=== PATIENT | female | born 1980 | race Hispanic/Latino ===

== ENCOUNTER 2019-04-17 09:43 | Emergency (ER) | payer SELFPAY ==
[2019-04-17 10:56] LABS: #Basophils 0.1 thou/uL (0.0-0.2); #Eosinphils 0.1 thou/uL (0.0-0.7); #Lymphocytes 1.1 thou/uL (1.20-3.40); #Monocytes 0.5 thou/uL (0.11-0.59); #Neutrophils 4.9 thou/uL (1.40-6.50); %Basophils 0.8 % (0.0-1.0); %Lymphocytes 16.3 % (21.0-51.0); %Monocytes 7.9 % (0.0-10.0); %Neutrophils 73.1 % (42.0-75.0); Hemoglobin 6.8 g/dL (12.0-16.0); Mean Corpuscular HGB CONC 32.6 g/dL (32.0-36.0); Mean Corpuscular Hemoglobin 24.1 pg (27.0-31.0); Mean Corpuscular Volume 73.9 fL (78.0-98.0); Mean Platelet Volume 8.7 fL (7.4-10.4); Platelet Count 290 thou/uL (130-400); RBC Distribution Width 16.7 % (11.5-14.5); Red Blood Cell (RBC) Count 2.82 mill/uL (4.20-5.40); White Blood Cell (WBC) Count 6.7 thou/uL (4.8-10.8)
[2019-04-17 11:18] LABS: ALT (SGPT) 82 U/L (8-55); AST (SGOT) 58 U/L (5-34); Albumin 4.3 g/dL (3.5-5.0); Alkaline Phosphatase 112 U/L (40-150); Anion Gap 11 mmol/L (10-20); BUN (Urea Nitrogen) 8 mg/dL (7.0-18.7); Bilirubin, Total 0.5 mg/dL (0.2-1.2); Calc. Creatinine Clearance 0 mL/min (70-130); Calcium 9.1 mg/dL (7.8-10.44); Carbon Dioxide 27 mmol/L (22-29); Chloride 103 mmol/L (98-107); Estimated GFR-MDRD Greater than 90; Globulin 2.9 g/dL (2.4-3.5); Glucose 115 mg/dL (70-105); Potassium 3.9 mmol/L (3.5-5.1); Protein, Total 7.2 g/dL (6.0-8.3); Sodium 137 mmol/L (136-145)
[2019-04-17 11:33] LABS: BHCG - Serum Negative (NEGATIVE); Pregs Control Background? CLEAR/WHITE (CLR/WHITE); Pregs Control Bar Appear? YES (CONTROL BAR)
[2019-04-17 11:34] LABS: Hypochromia SLIGHT = 6-15 cells (100X) (0-5/hpf); MDiff Complete? YES; Microcytosis MODERATE=15-30 cells (100X) (0-5/hpf); Platelet Morphology Comment Appears Adequate; Polychromasia MODERATE = 3-4 cells (100X) (0-2/hpf)
[2019-04-17 11:52] LABS: Iron 19 ug/dL (50-170); Iron Binding Capacity, Total 466 mcg/dL (265-497)
[2019-04-17 12:03] LABS: Ferritin 11.08 ng/mL (10-291)
--- NOTE | 2019-04-17 12:51 | ULT ---
Pelvic sonogram transabdominal and transvaginal imaging with duplex evaluation HISTORY: Pelvic pain and bleeding. FINDINGS: Urinary bladder is unremarkable. The uterus is very heterogeneous and measures up to 15.1 c m. Endometrium is 1.0 cm. No free fluid is apparent. Right ovary is 4.1 cm width good color and spectral Doppler flow. Left ovary not well visualized with transabdominal or transvaginal imaging. IMPRESSION: Enlarged uterus at 15.1 cm. No other significant abnormalities are demonstrated.
== END 2019-04-17 18:58 | disposition home or self-care (01) ==
LOC: ERS 09:43
DX: D64.9 Anemia, unspecified (principal)
CPT/HCPCS: 36415; 36430; 76856; 80053; 82728; 83540; 83550; 84703; 85025; 86850; 86900; 86901; 99283; P9016

== ENCOUNTER 2019-06-14 05:42 | Emergency (ER) | payer OTHER ==
[2019-06-14] MEDS ORDERED: Ketorolac Tromethamine 30 MG/ML VIAL ONE (06:05)
[2019-06-14] MEDS ORDERED: Ondansetron PF 4 MG/2 ML Vial ONE (06:12)
[2019-06-14 06:42] LABS: #Eosinphils 0.2 thou/uL (0.0-0.7); #Lymphocytes 1.5 thou/uL (1.20-3.40); #Monocytes 0.5 thou/uL (0.11-0.59); %Basophils 0.1 % (0.0-1.0); %Eosinophils 2.8 % (0.0-10.0); %Lymphocytes 24.2 % (21.0-51.0); %Monocytes 7.3 % (0.0-10.0); %Neutrophils 65.6 % (42.0-75.0); Hemoglobin 12.6 g/dL (12.0-16.0); Mean Corpuscular Volume 87.4 fL (78.0-98.0); Mean Platelet Volume 8.4 fL (7.4-10.4); Platelet Count 252 thou/uL (130-400); RBC Distribution Width 15.2 % (11.5-14.5); Red Blood Cell (RBC) Count 4.51 mill/uL (4.20-5.40); White Blood Cell (WBC) Count 6.2 thou/uL (4.8-10.8)
[2019-06-14 06:43] LABS: Bilirubin Negative (Negative); Blood, Urine Negative (Negative); Clarity Clear (Clear); Glucose, Urine (Dipstick) Normal (Negative); Leukocyte Negative Leu/uL (Negative); Nitrite Negative (Negative); Protein, Urine (Dipstick) Negative (Neg-Trace); Urobilinogen Normal mg/dL (Less than 2)
[2019-06-14 06:47] LABS: BHCG - Serum Negative (NEGATIVE); Pregs Control Background? CLEAR/WHITE (CLR/WHITE); Pregs Control Bar Appear? YES (CONTROL BAR)
[2019-06-14] MEDS ORDERED: Promethazine HCl 25 MG/ML VIAL ONE (06:48)
[2019-06-14 06:54] LABS: ALT (SGPT) 186 U/L (8-55); AST (SGOT) 91 U/L (5-34); Albumin 4.3 g/dL (3.5-5.0); Alkaline Phosphatase 114 U/L (40-150); Anion Gap 13 mmol/L (10-20); BUN (Urea Nitrogen) 13 mg/dL (7.0-18.7); Bilirubin, Total 0.3 mg/dL (0.2-1.2); Calc. Creatinine Clearance 0 mL/min (70-130); Calcium 9.1 mg/dL (7.8-10.44); Carbon Dioxide 24 mmol/L (22-29); Chloride 103 mmol/L (98-107); Estimated GFR-MDRD Greater than 90; Glucose 133 mg/dL (70-105); Potassium 3.7 mmol/L (3.5-5.1); Protein, Total 7.3 g/dL (6.0-8.3); Sodium 136 mmol/L (136-145)
[2019-06-14] MEDS ORDERED: Morphine 4 MG/ML VIAL ONE ×2 (07:04→08:39)
--- NOTE | 2019-06-14 08:13 | CT ---
EXAM: Abdomen and pelvic CT scan with contrast: HISTORY: Pain COMPARISON: Reference is made to recent pelvic ultrasound 04/17/2019 FINDINGS: The visualized lung bases are clear. Liver: Hepatic steatosis Gallbladder: Prior cholecystectomy Pancreas: Unremarkable Spleen: Prominent volume without focal lesion Adrenal glands: Unremarkable. Kidneys: No renal calculus or acute obstruction. No solid or cystic mass. Bowel: Incomplete assessment of bowel due to absence of enteric contrast. There is a lobular mass of the left lower quadrant of the abdomen which does emanate from the left ad nexal region, and is of mixed density demonstrating a cystic and solid appearance, and measuring 9.1 cm in length by 5.7 cm in width. The uterus is heterogeneous which may relate to physiologic proc ess. The right ovary is of normal volume. Urinary Bladder: The urinary bladder is unremarkable. Adenopathy: No adenopathy within the abdomen or pelvis. Free Air: No free air. Ascites: No ascites. Osseous structures: No acute osseous abnormalities. IMPRESSION: Cystic and solid soft tissue mass of the left lower quadrant of the abdomen which does arise from the left adnexa, and therefore favors a cystic ovarian neoplasm. Dedicated pelvic MRI with attention to the left lower quadrant of the abdomen, along with gynecologic consultation are necessary for furt her evaluation.
--- NOTE | 2019-06-14 09:55 | ULT ---
Pelvic sonogram transabdominal imaging with duplex evaluation HISTORY: Pelvic mass. Pelvic pain. COMPARISON: CT from 06/14/2019. Findings: urinary bladder is unremarkable. Uterus has a heterogeneous echotexture and measures up to 14 on today's exam. Endometrium is 1.1 cm. Right ovary is 2.8 cm with good color and spectral Doppler flow. At the left adnexa, a normal ovary is not visualized. A large predominantly bilobed very heterogeneou s mass with 2 dominant cysts measures up to 10.8 cm length by 7.0 cm width on sonogram. The largest cystic component is 6.6 cm. Venous flow is seen within the mass. Arterial flow not well documented. 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
[2019-06-14] MEDS ORDERED: ISOVUE-370 76%-LOCM 1 ML ONE (13:33)
== END 2019-06-14 10:38 | disposition home or self-care (01) ==
LOC: ERS 05:42
DX: N83.8 Other noninflammatory disorders of ovary, fallopian tube and broad ligament (principal); D50.9 Iron deficiency anemia, unspecified
CPT/HCPCS: 36415; 74177; 76856; 80053; 81003; 84703; 85025; 93976; 96365; 96375; 96376; J1885; J2270; J2405; J2550; Q9966

== ENCOUNTER 2020-03-19 15:15 | Inpatient (IN) | payer OTHER, SELFPAY ==
[2020-04-01 09:48] VITALS: BMI 47.2
[2020-04-01 11:00] LABS: Hemoglobin 10.3 g/dL (12.0-16.0); Mean Corpuscular HGB CONC 32.4 g/dL (32.0-36.0); Mean Corpuscular Volume 86.3 fL (78.0-98.0); Mean Platelet Volume 7.8 fL (7.4-10.4); Platelet Count 298 thou/uL (130-400); RBC Distribution Width 16.8 % (11.5-14.5); Red Blood Cell (RBC) Count 3.68 mill/uL (4.20-5.40); White Blood Cell (WBC) Count 5.5 thou/uL (4.8-10.8)
[2020-04-01 11:15] LABS: BHCG - Serum Negative (NEGATIVE); Pregs Control Background? CLEAR/WHITE (CLR/WHITE); Pregs Control Bar Appear? YES (CONTROL BAR)
[2020-04-01 18:39] LABS: SARS-CoV-2 MS2 Positive; SARS-CoV-2 N Gene Negative; SARS-CoV-2 S Gene Negative; SARS-CoV-2 orf1ab Negative
[2020-04-06] MEDS ORDERED: CeleCOXIB 100 MG CAP ONE (06:14)
[2020-04-06] MEDS ORDERED: Gabapentin 300 MG CAP ONE (06:14)
[2020-04-06] MEDS ORDERED: Famotidine 20 MG TAB ONE (06:14)
[2020-04-06] MEDS ORDERED: Famotidine/PF 20 mg/2ml Vial ONE (06:14)
[2020-04-06] MEDS ORDERED: Bupivacaine PF 0.5% 30 ML VIAL ONE (06:39)
[2020-04-06] MEDS ORDERED: Lidocaine 1% w/Epinephrine 1:100K 20 ML VIAL ONE (06:39)
[2020-04-06] MEDS ORDERED: Fentanyl 250 MCG/5 ML VIAL ONE (06:58)
[2020-04-06] MEDS ORDERED: Midazolam HCl 2 mg/2 ml Vial ONE (07:24)
[2020-04-06] MEDS ORDERED: Ropivacaine 0.2% 550 ML 750 ML NERVE BLCK SCH ×2 (08:00→08:30)
[2020-04-06] MEDS ORDERED: metroNIDAZOLE 500 MG/100 ML BAG ONE (09:52)
[2020-04-06] MEDS ORDERED: Fentanyl 100 MCG/2 ML VIAL ONE (10:40)
[2020-04-06] MEDS ORDERED: PHENYLEPHRINE-NS 100 MCG/ML 10 ML SYRINGE ONE (11:02)
[2020-04-06] MEDS ORDERED: Succinylcholine Chloride 20 MG/ML 10 ml SYRINGE FS ONE (11:02)
[2020-04-06] MEDS ORDERED: Ondansetron PF 4 MG/2 ML Vial ONE (11:02)
[2020-04-06] MEDS ORDERED: Dexamethasone 20 MG/5 ML VIAL ONE (11:02)
[2020-04-06] MEDS ORDERED: Rocuronium Bromide 10 MG/ML (10ML VIAL) ONE (11:02)
[2020-04-06] MEDS ORDERED: EPHEDRINE 25 MG/5 ML SYRINGE ONE (11:02)
[2020-04-06] MEDS ORDERED: PROPOFOL 200 MG/20 ML VIAL ONE (11:02)
[2020-04-06] MEDS ORDERED: Lidocaine 1% PF 5 ML VIAL ONE (11:02)
[2020-04-06] MEDS ORDERED: Glycopyrrolate 0.2 MG/ML 5 ML SYRINGE ONE (11:02)
--- NOTE | 2020-04-06 11:42 | OP ---
DATE OF PROCEDURE: 04/06/2020 PREOPERATIVE DIAGNOSES: 1. Enlarged uterus. 2. Anemia with history of blood transfusion. 3. Left lower quadrant pain. 4. Left adnexal mass. 5. Essential obesity. POSTOPERATIVE DIAGNOSES: 1. Enlarged uterus. 2. Anemia with history of blood transfusion. 3. Left lower quadrant pain. 4. Left adnexal mass. 5. Essential obesity. PROCEDURE PERFORMED: Robotic-assisted total laparoscopic hysterectomy with bilateral salpingectomy and left oophorectomy with placement of On-Q pump. ASSISTANT PASSENGER LOCOMOTIVE ENGINEER: Ritika Campa PA-C. COMPLICATIONS: None. ESTIMATED BLOOD LOSS: 50 mL. OPERATIVE FINDINGS: 1. Normal-appearing vagina and cervix. Uterus sounds to 11 cm. 2. Normal-appearing right ovary and fallopian tube segment. 3. Left fallopian tube segment encompassed in 5 cm cystic mass with adhesions to the left ovary. 4. Adhesions of the bladder to the cervix. 5. Surgical site hemostatic. DESCRIPTION OF PROCEDURE: The patient was taken back to the OR with IV fluids running. When she was in the OR, she was placed in dorsal supine position and general anesthesia was obtained. Once the patient was asleep, her arms were tucked at her side and her legs were placed in low dorsal lithotomy position, and her abdomen and vagina were prepped and draped in normal fashion for gynecologic laparoscopy. The bladder was drained and a catheter was placed with a Alcides syringe attached to the tip. An operative speculum was placed into the vagina. The cervix was grasped and sounded to 11 cm. A [employer] manipulator was assembled in the normal fashion with a 10 cm tip and a 3.5 cm cup. The surgeon's gloves were changed, and attention was then turned to the laparoscopic portion of the case. Beginning approximately 2 cm above the umbilicus, lidocaine was placed through the skin. A 12 mm incision was made with a scalpel and a Veress needle was placed through this skin incision. The abdomen was insufflated without difficulty. The Veress needle was removed and a 12 mm trocar was placed through this incision, followed by the laparoscope. Minimal intra-abdominal adhesive disease was noted. The patient was placed in Trendelenburg position and the 3 remaining ports were placed in routine fashion under direct visualization including right and left lower quadrant 8 mm robotic trocars in the right upper quadrant 11 mm port. The robot was then docked to the patient's bedside and the instruments were directed under direct visualization into the pelvis. Beginning on the patient's left side, the left cystic mass and ovary were manipulated. They were removed from the pelvic sidewall with Bovie cauterization, transecting the IP ligament. The left utero-ovarian ligament was then cauterized and transected. The round ligament on the patient's left side was cauterized, transected, and divided into anterior and posterior leaves, it was then dissected down towards the level of the uterine artery. The uterine artery was then skeletonized on the patient's left side. The anterior leaf of the broad ligament was taken down towards the level of the cervix. The bladder was backfilled with the bladder anatomy delineated from the cervix and lower portion of the uterus. The vesicouterine fascia was then dissected to allow the bladder to fall away from the cervix and the planned colpotomy site. Next, attention was turned to the right side, where the procedure was completed in similar fashion without the removal of the right ovary. The right utero-ovarian ligament was cauterized and transected. The right round ligament was cauterized, transected, and divided into anterior and posterior leaves. The leaves of the round ligament were dissected down towards the level of the uterine artery, which was then skeletonized, cauterized, and transected. The bladder flap was completed on the patient's right side towards the midline and the bladder was completely dissected away from the planned colpotomy site. The bladder was backfilled with no evidence of bladder injury. Attention was then turned to the left side again, where the left uterine artery was cauterized and transected. Beginning posteriorly, a colpotomy was performed using monopolar scissors and completed circumferentially. With the colpotomy completed, an attempt was made to pass the uterus through the vagina; however, the uterine specimen was noted to be too large and did not easily pass. A laparoscopic bag was then passed through the vagina open into the pelvis and the uterus and left tube segment and ovary specimen were placed into this bag. The bag was moved away from the pelvis. The pelvis was copiously irrigated and suctioned dry. Any areas of the vaginal cuff were controlled with Bovie cauterization. The vaginal cuff was then closed with Stratafix suture in a running fashion. After the vaginal cuff was closed, it was irrigated as well as the surgical pedicles and suctioned dry. The pressure was dropped to 4 mmHg with no evidence of bleeding noted. The bag was secured through the assistant corporation counsel port and the robotic instruments were removed. Prior to removing the robotic instruments, On-Q catheter tip was placed under direct visualization through the abdominal wall and the On-Q catheter was primed in the pelvis. It was then secured with a Tegaderm on the patient's abdomen. With instruments removed, the patient was flattened out into a neutral position. The surgeon re-gowned and gloved, and attention was turned to removing the uterine and left adnexal structures through the laparoscopic bag. The supraumbilical incision was extended to approximately 15 mm length. Digitally, the bag was easily palpated and brought through this incision. The cervix was immediately identified, self-contained in the bag that coming through the umbilical incision. The uterus was then morcellated using a coring technique in a self-contained back through this incision. Once the uterus was completely excised, the left adnexal structures were grasped and brought through the bag as well. Clear fluid was noted to leak within the bag from the left ovarian specimen. The bag was then removed. All surgical sites were irrigated on the outside of the abdomen. The supraumbilical fascia was closed with Vicryl suture. All 4 skin incisions were closed with 4-0 Monocryl and dressed with Dermabond dressing. The counts were correct. The patient received Ancef as well as Flagyl with the Ancef prior to the start of the case and the Flagyl at the end of the case. There were no complications. The patient was transferred to recovery room in good condition. Job ID: [id number]
[2020-04-06] MEDS ORDERED: Bisacodyl 10 MG SUPP PR PRN (12:31)
[2020-04-06] MEDS ORDERED: Zolpidem Tartrate 5 MG TAB PO PRN (12:31)
[2020-04-06] MEDS ORDERED: Promethazine HCl 25 MG/ML VIAL IM PRN (12:31)
[2020-04-06] MEDS: Ketorolac Tromethamine 30 MG/ML VIAL IVP SCH ×2 (12:31→18:21)
[2020-04-06] MEDS ORDERED: Ondansetron PF 4 MG/2 ML Vial IVP PRN (12:31)
[2020-04-06] MEDS ORDERED: Acetaminophen 325 MG TAB PO PRN (12:31)
[2020-04-06] MEDS ORDERED: HYDROcodone/Acetaminophen 5/325 mg Tablet PO PRN ×2 (12:31)
[2020-04-06] MEDS ORDERED: Morphine 4 MG/ML VIAL SLOW IVP PRN (12:31)
[2020-04-06] MEDS ORDERED: diphenhydrAMINE 25 MG CAP PO PRN (12:31)
[2020-04-06] MEDS: Sodium Chloride 0.9% 1,000 ML IV SCH ×2 (13:57→21:06)
[2020-04-06] MEDS: Simethicone Chewable 80 MG TAB PO PRN ×2 (15:50→22:20)
[2020-04-06] MEDS ORDERED: Multivit, Therapeutic 1 TAB PO SCH (21:00)
[2020-04-06] MEDS: Ferrous Sulfate 325 MG TAB PO SCH (21:04)
[2020-04-07] MEDS ORDERED: Ketorolac Tromethamine 30 MG/ML VIAL IVP SCH (00:30)
[2020-04-07] MEDS: Ketorolac Tromethamine 30 MG/ML VIAL IVP SCH (00:40)
[2020-04-07 01:08] VITALS: TEMP 98.2
[2020-04-07] MEDS ORDERED: Ibuprofen 800 MG TAB PO SCH (06:00)
[2020-04-07] MEDS ORDERED: Levothyroxine Sodium 100 MCG TAB PO SCH (06:00)
[2020-04-07] MEDS: Sodium Chloride 0.9% 1,000 ML IV SCH (06:05)
[2020-04-07 06:51] LABS: Mean Corpuscular HGB CONC 30.8 g/dL (32.0-36.0); Mean Corpuscular Hemoglobin 27.7 pg (27.0-31.0); Mean Corpuscular Volume 89.9 fL (78.0-98.0); Mean Platelet Volume 8.1 fL (7.4-10.4); Platelet Count 242 thou/uL (130-400); RBC Distribution Width 16.6 % (11.5-14.5); Red Blood Cell (RBC) Count 3.25 mill/uL (4.20-5.40); White Blood Cell (WBC) Count 6.3 thou/uL (4.8-10.8)
[2020-04-07 07:42] VITALS: BP 111/58
--- NOTE | 2020-04-07 08:49 | PDOC.EVN ---
Event Note - Event Note Event Note: POD1/Discharge Note Doing well, post op goals met,no bleeding. VS WNL NAD A and O nonlabored breathing Abd non distended Inc CDI x 4 Hamida dry A/P: POD1 doing well sp RATLH LSO and RS. Plan for DC today.
[2020-04-07] MEDS ORDERED: Vitamin E 400 UNITS CAP PO SCH (09:00)
[2020-04-07] MEDS ORDERED: Ascorbic Acid 500 mg Chewable Tablet PO SCH (09:00)
[2020-04-07] MEDS: Ferrous Sulfate 325 MG TAB PO SCH (09:33)
[2020-04-07] MEDS: Simethicone Chewable 80 MG TAB PO PRN (09:36)
== END 2020-04-07 10:48 | disposition home or self-care (01) | DRG 742 ==
LOC: SURG A 04-06 06:03 → 3SW 04-06 11:55 → EDSTATUS 04-06 15:15
PROVIDERS: ADMIT Obstetrics & Gynecology; ATTEND Obstetrics & Gynecology
PROC: 0UT24ZZ Resection of Bilateral Ovaries, Percutaneous Endoscopic Approach (ICD-10-PCS; principal; 2020-04-06)
PROC: 0UT74ZZ Resection of Bilateral Fallopian Tubes, Percutaneous Endoscopic Approach (ICD-10-PCS; 2020-04-06)
PROC: 8E0W4CZ Robotic Assisted Procedure of Trunk Region, Percutaneous Endoscopic Approach (ICD-10-PCS; 2020-04-06)
DX: N93.9 Abnormal uterine and vaginal bleeding, unspecified (principal); Z68.42 Body mass index [BMI] 45.0-49.9, adult; N85.9 Noninflammatory disorder of uterus, unspecified; N85.2 Hypertrophy of uterus; E03.9 Hypothyroidism, unspecified; Z20.828 Contact with and (suspected) exposure to other viral communicable diseases; E66.01 Morbid (severe) obesity due to excess calories; F41.8 Other specified anxiety disorders; D64.9 Anemia, unspecified; J30.2 Other seasonal allergic rhinitis
CPT/HCPCS: 36415; 84703; 85027; 86850; 86900; 86901; 87635; 88307; J0690; J1100; J1885; J2001; J2250; J2270; J2405; J2704; J3010; S0020; S0028; U0003

== ENCOUNTER 2021-02-04 15:09 | Emergency (ER) | payer OTHER, SELFPAY ==
[2021-02-04] MEDS ORDERED: Mag-Al 1200 mg/1200 mg/30 ML UDCUP ONE (15:45)
[2021-02-04] MEDS ORDERED: Lidocaine Viscous Sol 2% 15 ml UD Cup ONE (15:45)
[2021-02-04] MEDS ORDERED: Ondansetron ODT 4 MG TAB ONE (16:01)
== END 2021-02-04 17:32 | disposition home or self-care (01) ==
LOC: ERS 15:09
DX: U07.1 COVID-19 (principal); F43.0 Acute stress reaction; E03.9 Hypothyroidism, unspecified; Z79.899 Other long term (current) drug therapy
CPT/HCPCS: 71045; 85379; 93005; Q0162

== ENCOUNTER 2021-03-23 09:08 | Outpatient (CLI) | payer OTHER | END 2021-03-23 09:09 | disposition home or self-care (01) | LOC: BICULT 09:08 | PROVIDERS: ATTEND Family Medicine | DX: R74.01 Elevation of levels of liver transaminase levels (principal); K76.0 Fatty (change of) liver, not elsewhere classified; Z90.49 Acquired absence of other specified parts of digestive tract | CPT/HCPCS: 76705 ==